=== PATIENT | female | born 1965 | race Caucasian/White ===

== ENCOUNTER 2018-03-22 08:51 | Day surgery (SDC) | payer BC ==
[2018-03-19 08:40] LABS: HEMATOCRIT 41.3 % (36.0-48.0); HEMOGLOBIN 13.4 g/dL (12-16); MCH 26.6 pg (26.0-34.0); MCHC 32.4 g/dL (31.0-37.0); MCV 82.1 fL (80.0-100.0); MEAN PLATELET VOLUME 9.8 fL (7.4-10.4); RBC 5.03 10x6/uL (4.00-5.40); RDW 16.9 % (11.5-14.5); WBC 4.8 10x3/uL (4.8-10.8)
[~2018-03-22] VITALS: Ht 162.6 cm; Wt 52.6 kg
--- NOTE | ~2018-03-22 | OP ---
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 POSTOPERATIVE DIAGNOSIS: De Quervain syndrome of the right wrist. PROCEDURE: De Quervain release. SURGEON: Kelvin Mcdaniels MD ANESTHESIA: General. INTRAOPERATIVE COMPLICATIONS: None. SUMMARY OF PATHOLOGIC FINDINGS: The patient had significant synovitis. OPERATIVE SUMMARY IN DETAIL: After obtaining the appropriate preoperative orthopedic surgery consent as well as anesthetic consultation, evaluation and clearance, the patient was brought to the operating room and placed on the operating table in supine position. After general laryngeal mask airway was administered, tourniquet was placed on the proximal aspect of the right upper extremity. Right upper extremity was prepped and draped in routine sterile fashion. The arm was elevated and exsanguinated, tourniquet was inflated to 250 mmHg. An incision was made directly over the radial styloid, taken down to the level of the extensor retinaculum which was incised to find a substantial amount of fluid as well as synovitis. Synovitis was removed. The wound was irrigated and closed with 4-0 Prolene in running fashion. The area was locally infiltrated with 0.25% Marcaine plain. Sterile dressings were applied. Tourniquet was deflated. The patient awakened and taken to recovery room in stable condition. Final needle and sponge counts were correct. TRANSINT:[id number] Voice Confirmation ID: [id number] DOCUMENT ID: [id number] KELVIN MCDANIELS MD at 1035 CC: [id number] DICTATION DATE: 03/22/18 1235 TRANSITIONAL NURSE: 03/22/18 1400 [facility] 03/22/18 [place] [address]
--- NOTE | ~2018-03-22 | OP ---
PATIENT NAME: JEWEL ESCOBAR MEDICAL RECORD: [id number] :69 LOCATION:[facility] ADMISSION DATE: SURGEON: KELVIN MCDANIELS MD DATE OF OPERATION: 03/22/2018 PREOPERATIVE DIAGNOSIS: De Quervain syndrome of the right wrist. POSTOPERATIVE DIAGNOSIS: De Quervain syndrome of the right wrist. PROCEDURE: De Quervain's release of the right wrist. SURGEON: Kelvin Mcdaniels MD ANESTHESIA: General. INTRAOPERATIVE COMPLICATIONS: None. SUMMARY OF PATHOLOGIC FINDINGS: The patient had substantial amount of tendinopathy and synovitis consistent with the preoperative diagnosis of de Quervain syndrome. OPERATIVE SUMMARY IN DETAIL: After obtaining the appropriate preoperative orthopedic surgery consent as well as anesthetic consultation, evaluation, and clearance, the patient was brought to the operating room and placed on the table in supine position. After adequate general TIVA anesthesia was administered, the patient's scapula was stabilized. Manipulation was carried out first in abduction with good release followed by external rotation, internal rotation, forward flexion as well as abduction, external rotation. Excellent range of motion was achieved. The patient was awakened, taken to recovery room in stable condition. All final needle and sponge counts were correct. TRANSINT:[id number] Voice Confirmation ID: [id number] DOCUMENT ID: [id number] KELVIN MCDANIELS MD at 1035 CC: [id number] DICTATION DATE: 03/22/18 1234 QUALITY CONTROL SUPERVISOR: 03/22/18 1423 [facility] 03/22/18 [id number] [place] [address]
[~2018-03-22 08:51] MED LIST: CALCIUM 500 +1 EAC3 PO; MAGNESIUM OXID250 MG PO; MULTIPLE VITAMI1 TA1 PO
[2018-03-22 11:02] VITALS: BP 121/86; Ht 162.6 cm; Wt 52.6 kg
[2018-03-22 11:31] LABS: HCG URINE NEGATIVE (NEGATIVE)
== END 2018-03-22 14:37 | disposition home or self-care (01) ==
LOC: D.OPS 08:51 → D.PAN 12:15 → D.OPS 14:37
PROVIDERS: Anesthesiology; Orthopaedic Surgery
DX: M77.8 Other enthesopathies, not elsewhere classified (principal); K21.9 Gastro-esophageal reflux disease without esophagitis; Z01.812 Encounter for preprocedural laboratory examination